=== PATIENT | female | born 1990 | race Two or more races ===

== ENCOUNTER 2024-10-24 14:38 | Emergency (ER) | payer MEDICAID, SELFPAY ==
--- NOTE | 2024-10-24 14:57 | EKG_ITS ---
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
[2024-10-24 15:06] VITALS: BP 124/86; PULSE 74; RESP 18; TEMP 36.6; O2SAT 95
--- NOTE | 2024-10-24 15:06 | XR_ITS ---
Exam: Chest 1 view, AP Date and time of exam: 10/24/2024, 3:07 PM INDICATION: Chest pain Comparison: 10/03/2023 Findings: Normal heart size. No mediastinal adenopathy. No acute fracture No pulmonary edema or pneumonia. Impression: No active disease.
--- NOTE | 2024-10-24 15:07 | PD.EDADULT ---
ED General RME/HPI General Chief complaint: Chest Pain Stated complaint: INTERMITTENT CHEST PAIN SINCE YESTERDAY Time Seen by Provider: 10/24/24 15:06 Arrival date/time: 10/24/24 14:38 CC: Chest tightness, with tingling in her fingertips and in her back HPI onset 5 PM last night approximately 22 hours ago no prior history of similar events is on medication for weight loss denies fever chills shortness of breath difficulty breathing altered mentation or syncope. Related Data Previous Rx's ?Medication ?Instructions ?Recorded albuterol sulfate 90 mcg/actuation 2 puff inhalation QID PRN 05/21/21 aerosol inhaler shortness of breath or wheezing #8.5 grams azithromycin 250 mg tablet See Rx Instructions PO .COMPLEX #6 05/21/21 tabs tramadol 37.5 mg-acetaminophen 325 1 tab PO TID PRN pain #15 tabs 05/31/21 mg tablet (Ultracet) Allergies Allergy/AdvReac Type Severity Reaction Status Date / Time black pepper Allergy Mild Rash Verified 10/24/24 14:42 cinnamon Allergy Mild Rash Verified 10/24/24 14:42 COCONUT Allergy Mild Rash Uncoded 10/24/24 14:42 Review of Systems Review of Systems Narrative Review of Systems: GEN: No fever, no chills, no weight loss EYES: No discharge, no visual changes, no pain HEENT: No ear pain, no congestion, no sore throat PULM: No shortness of breath, no cough, no congestion CV: + chest pain, no dyspnea on exertion, no palpitations GI: No nausea, no vomiting, no diarrhea, no pain, no constipation : No frequency, no urgency, no dysuria MUSC/SKEL: No joint pain, no back pain SKIN: No rash PSYCH: No hallucinations, no depression HEME/LYMPH: No easy bleeding or bruising tendencies NEURO: No weakness, no headache Past Medical History Social History SMOKING STATUS: Never smoker ED Exam Narrative Physical exam: [General: Morbidly obese not in any acute distress Head normocephalic HEENT: Eyes pupils are PERRLA EOMs are intact mouth pink dry membranes uvula is midline swallow symmetrical phonation is normal all other subsystems of HEENT are within acceptable limits Neck is supple nontender Chest equal chest rise nontender to palpation Respiratory: Clear to auscultation no wheezes crackles or rubs CV: Rate rhythm is regular no murmurs rubs or clicks Abdomen is grossly distended secondary to body habitus soft nontender no masses positive bowel sounds all 4 quadrants Back: No CVA tenderness no spinous process tenderness from cervical spine thoracic and lumbar spine Skin: Intact no petechiae rash induration ulceration or crepitus Extremities: Moving all extremity against resistance cap refill less than 2 seconds neurosensory intact Neuro: Awake alert oriented x3 Glascow coma 15 no focal deficits] Course Quality Measures none Orders Category Date Time Status EKG (ED ONLY) *Do not use* NOW Care 10/24/24 14:57 Completed CXR [XR chest 1V] Stat Exams 10/24/24 15:06 Completed EKG (ED Only) Stat Exams 10/24/24 14:57 Draft HCG Qualitative,Urine Stat Lab 10/24/24 15:30 Completed Troponin I Stat Lab 10/24/24 15:20 Completed Urinalysis Stat Lab 10/24/24 15:30 Completed Vital Signs Vital signs: Vital Signs Temperature 98 F 10/24/24 15:06 Pulse Rate 74 10/24/24 15:06 Respiratory Rate 18 10/24/24 15:06 Blood Pressure 124/86 H 10/24/24 15:06 Pulse Oximetry (%) 95 10/24/24 15:06 Oxygen Delivery Method Room Air 10/24/24 15:06 Discharge Plan Plan Patient Disposition: HOME (Self Care) Patient condition on transfer: Stable Prescriptions/Referrals Prescriptions/Med Rec: No Action azithromycin 250 mg tablet See Rx Instructions .ROUTE .COMPLEX Qty: 6 0RF Rx Instructions: For 250 mg dose pack: take 500 mg today (day 1), then 250 mg for 4 days (days 2-5) albuterol sulfate 90 mcg/actuation HFA aerosol inhaler 2 puff inhalation QID PRN (Reason: shortness of breath or wheezing) Qty: 8.5 0RF tramadol-acetaminophen [Ultracet] 37.5-325 mg tablet 1 tab PO TID PRN (Reason: pain) Qty: 15 0RF Referrals: Alexander Benz MD [Physician] - In 1 week No Primary/Family,Physician [Primary Care Provider] - In 1 week Problem List Clinical Impression: Chest pain of unknown etiology Patient/Caregiver Discharge Instructions Education Materials: ED Chest Pain, Noncardiac Additional Instructions: Ibuprofen or Tylenol for pain follow-up with your primary care provider if there is worsening of symptoms spite of these interventions return the emergency room medially for further evaluation. Print Language: Arabic Stand Alone Forms: Ella Award Info., Patient Portal Info Letter HUAN/CA Supervising Physician NICOLE Supervising Physician: Graham uQintana ENP [facility] Clinical Information Provided by patient Medical Records Reviewed [facility] Labs/Rad/Tests considered, not Ordered Describe details: Troponin is negative Urine is contaminated but no signs of infection. Chronic Illness/Social Conditions Add or document further as needed: Morbid obesity EKG EKG Interpretation narrative: EKG performed at 1507 shows ventricular rate of 72 DC interval 134 QRS of 91 QTc of 398 this is sinus rhythm Lab Interpretation Lab(s) interpretation(s): Troponin is negative Imaging Provider imaging interpretation(s): Chest x-ray as interpreted by me read by radiology as negative. Medication Administration(s) none Diagnosis Differential diagnosis: ACS IA pneumonia Differential dx and/or dx ruled out: Noncardiac chest pain Dispositon Disposition: Discharge Home
[2024-10-24 16:03] LABS: Troponin I < 0.002 ng/mL (0.0-0.045)
[2024-10-24 16:15] LABS: Collection Type, Urine Clean Catch
[2024-10-24 16:41] LABS: Bilirubin,Urine Negative (Negative); Blood,Urine 1+ (Negative); Clarity,Urine Turbid (Clear/Hazy); Color,Urine Yellow (Lt Yel-Yel); Glucose, Urine Negative (Negative); Ketones,Urine Negative (Negative); Leukocyte Esterase,Urine Positive (Negative); Nitrite,Urine Negative (Negative); PH,Urine 6.0 (5.0-7.0); Protein,Urine Negative (Neg - Trace); RBC,Urine 5 /hpf (0-3); Specific Gravity,Urine 1.027 (1.001-1.035); Squamous Epithelial Cell,Urine 7 /hpf (0-5); Urobilinogen,Urine Negative mg/dL (0.0-1.0); WBC,Urine 27 /hpf (0-5)
[2024-10-24 16:43] LABS: HCG Qualitative,Urine Negative
[2024-10-24 17:03] VITALS: BP 129/89; PULSE 69; RESP 18; TEMP 36.8; O2SAT 98
== END 2024-10-24 18:27 | disposition home or self-care (01) ==
PROVIDERS: Registered Nurse General Practice; Emergency Provider Emergency Medicine
DX: R07.89 Other chest pain (principal); E66.01 Morbid (severe) obesity due to excess calories; Z68.41 Body mass index [BMI] 40.0-44.9, adult
CPT/HCPCS: 36415; 71045; 81001; 81025; 84484; 93005; 99283